=== PATIENT | female | born 1965 | race American Indian/Alaskan Native ===

== ENCOUNTER 2017-04-04 07:33 | Outpatient (CLI) | payer BC ==
--- NOTE | 2017-04-04 11:07 | Mammography Report ---
BILATERAL DIGITAL SCREENING MAMMOGRAM with CAD : 04/04/17 07:33:00 CLINICAL: Routine screening. COMPARISON:02/16/16 FINDINGS: The breasts are heterogeneously dense, which may obscure small masses.The fibroglandular pattern is stable. A right upper biopsy clip. No mass, architectural distortion or suspicious calcifications. IMPRESSION: No mammographic evidence of malignancy. BI-RADS CATEGORY: 2 -- Benign RECOMMENDATION: Routine mammographic screening in one year. COMMENT: Patient follow-up letters are generated by our [employer] application.
== END 2017-04-04 07:34 | disposition home or self-care (01) ==
LOC: MAMMO 07:33
PROVIDERS: ATTEND Internal Medicine
DX: Z12.31 Encounter for screening mammogram for malignant neoplasm of breast (principal)
CPT/HCPCS: 77067; G0202

== ENCOUNTER 2018-04-15 07:36 | Outpatient (CLI) | payer BC ==
--- NOTE | 2018-04-15 10:16 | Mammography Report ---
BILATERAL DIGITAL SCREENING MAMMOGRAM with CAD: 04/04/17 07:33:00 CLINICAL: Routine screening.Previous right benign biopsy. COMPARISON:04/04/17 and 02/16/16 FINDINGS: The breasts are heterogeneously dense, which may obscure small masses. Right upper outer asymmetries require additional imaging. A right upper biopsy clip.No architectural distortion or suspicious calcifications.The left breast is negative. IMPRESSION: Right asymmetries requiring further workup. BI-RADS CATEGORY: 0 -- Additional Imaging Evaluation Required RECOMMENDATION: Recall for right mediolateral and spot magnification CC and MLO views and right breast ultrasound if needed. ACR BI-RADS MAMMOGRAPHIC CODES: 0 = Needs additional imaging evaluation; 1 = Negative; 2 = Benign; 3 = Probably benign; 4 = Suspicious; 5 = Malignant; 6 = Known biopsy-proven malignancy COMMENT: 1. Dense breast tissue, i.e., adenosis, fibrocystic changes, etc., may obscure an underlying neoplasm. 2. Approximately 10% of cancers are not detected with mammography. 3. A negative mammography report should not delay biopsy if a clinically suspicious mass is present. COMMENT: Patient follow-up letters are generated via our [employer] application.
== END 2018-04-15 07:37 | disposition home or self-care (01) ==
LOC: MAMMO 07:36
PROVIDERS: ATTEND Internal Medicine
DX: Z12.31 Encounter for screening mammogram for malignant neoplasm of breast (principal)
CPT/HCPCS: 77067

== ENCOUNTER 2018-04-23 14:01 | Outpatient (CLI) | payer BC ==
--- NOTE | 2018-04-23 16:46 | Ultrasound Report ---
RIGHT DIGITAL DIAGNOSTIC MAMMOGRAM and RIGHT BREAST ULTRASOUND: 04/23/18 14:01:00 CLINICAL: Recalled for upper outer asymmetries. COMPARISON:04/15/18 screening FINDINGS: ML and spot magnification MLO and CC views were performed and demonstrate persistent upper-outer partially circumscribed asymmetries. Ultrasound of the upper outer right breast demonstrated several benign cysts and no solid mass. Clustered cysts at 10 o'clock 7 cm from the nipple measure 10 x 8 x 4 mm and 8 x 3 x 7 mm. Clustered cysts at 11 o'clock 4 cm from the nipple measure 11 x 10 x 5 mm. No solid mass or shadowing. IMPRESSION: Benign cysts right breast. BI-RADS CATEGORY: 2 - - Benign RECOMMENDATION: Routine mammographic screening in one year. ACR BI-RADS MAMMOGRAPHIC CODES: 0 = Needs additional imaging evaluation; 1 = Negative; 2 = Benign; 3 = Probably benign; 4 = Suspicious; 5 = Malignant; 6 = Known biopsy-proven malignancy COMMENT: 1. Dense breast tissue, i.e., adenosis, fibrocystic changes, etc., may obscure an underlying neoplasm. 2. Approximately 10% of cancers are not detected with mammography. 3. A negative mammography report should not delay biopsy if a clinically suspicious mass is present. COMMENT: Patient follow-up letters are generated via our [employer] application.
== END 2018-04-23 14:02 | disposition home or self-care (01) ==
LOC: MAMMO 14:01
PROVIDERS: ATTEND Internal Medicine
DX: N60.01 Solitary cyst of right breast (principal)

== ENCOUNTER 2019-04-21 10:49 | Outpatient (CLI) | payer BC ==
--- NOTE | 2019-04-22 08:09 | Mammography Report ---
DIGITAL SCREENING MAMMOGRAM WITH CAD, 04/21/2019 INDICATION: Routine screening mammography. TECHNIQUE: Digital bilateral 2D mammography was obtained in the craniocaudal and mediolateral obliq ue projections. This examination was interpreted with the benefit of Computer-Aided Detection analysi s. COMPARISON: 04/15/2018 FINDINGS: Breast Density: The breasts are heterogeneously dense, which may obscure small masses. There is no evidence of new mass, suspicious calcifications or architectural distortion in either frannie ast. A right upper biopsy clip with a stable scar at the clip. IMPRESSION: No mammographic evidence of malignancy. Follow up recommendation: Routine yearly BI-RADS Category 2: Benign. A "normal" or negative report should not discourage follow up or biopsy of a clinically significant f inding. A written summary of these findings will be mailed to the patient. The patient will be entered into a mammography reporting system which will generate a reminder letter for the patient's next appointmen t at the appropriate interval. The [employer] recommends yearly mammograms starting at age 40 and continuing as l mikal as a woman is in good health. Breast MRI is recommended for women with an approximate 20-25% or greater lifetime risk of breast cancer, including women with a strong family history of breast or ova simi cancer or who have been treated for Hodgkin's disease. Signer Name: Radu Field MD Signed: 04/22/2019 8:05 AM Workstation Name: [id number]
== END 2019-04-21 10:50 | disposition home or self-care (01) ==
LOC: MAMMO 10:49
PROVIDERS: ATTEND Internal Medicine
DX: Z12.31 Encounter for screening mammogram for malignant neoplasm of breast (principal)
CPT/HCPCS: 77067

== ENCOUNTER 2020-04-25 07:20 | Outpatient (CLI) | payer BC, OTHER ==
--- NOTE | 2020-04-25 08:27 | Mammography Report ---
DIGITAL SCREENING MAMMOGRAM WITH CAD, 04/25/2020 INDICATION: Routine screening mammography. SCREENING MAMMOGRAM TECHNIQUE: Digital bilateral 2D mammography was obtained in the craniocaudal and mediolateral obliq ue projections. This examination was interpreted with the benefit of Computer-Aided Detection analysi s. COMPARISON: 04/21/2019 FINDINGS: Breast Density: There are scattered areas of fibroglandular density. There is no evidence of dominant mass, suspicious calcifications or architectural distortion in eithe r breast. Right biopsy changes are again seen. Mild nodularity is stable. IMPRESSION: No evidence of malignancy Follow up recommendation: Routine yearly BI-RADS Category 2: Benign. A "normal" or negative report should not discourage follow up or biopsy of a clinically significant f inding. A written summary of these findings will be mailed to the patient. The patient will be entered into a mammography reporting system which will generate a reminder letter for the patient's next appointmen t at the appropriate interval. The [employer] recommends yearly mammograms starting at age 40 and continuing as l mikal as a woman is in good health. Breast MRI is recommended for women with an approximate 20-25% or greater lifetime risk of breast cancer, including women with a strong family history of breast or ova simi cancer or who have been treated for Hodgkin's disease. Signer Name: Long Hurtado MD Signed: 04/25/2020 8:23 AM Workstation Name: [id number]
== END 2020-04-25 07:21 | disposition home or self-care (01) ==
LOC: MAMMO 07:20
PROVIDERS: ATTEND Internal Medicine
DX: Z12.31 Encounter for screening mammogram for malignant neoplasm of breast (principal)
CPT/HCPCS: 77067